=== PATIENT | female | born 1980 | race Caucasian/White ===

== ENCOUNTER 2022-06-17 11:29 | Outpatient (REF) | payer OTHER, SELFPAY ==
[2022-06-17 12:48] LABS: Alanine Aminotransferase 8 U/L (0-31); Albumin Level 4.4 g/dL (3.5-5.0); Alkaline Phosphatase 41 U/L (39-117); Anion Gap 12 (12-20); Aspartate Amino Transferase 10 U/L (5-31); Bilirubin Total 0.7 mg/dL (0.0-1.0); Blood Urea Nitrogen 15 mg/dL (9-16); Calcium 8.6 mg/dL (8.4-10.2); Carbon Dioxide 24 mmol/L (22-29); Chloride 107 mmol/L (96-108); Cholesterol 150 mg/dL; Estimated Glomerular Filt Rate > 60; Glucose Fasting 102 mg/dL (60-99); HDL Cholesterol 78 mg/dL; LDL Cholesterol Calculated 66 mg/dl; Potassium 3.9 mmol/L (3.3-5.1); Sodium 139 mmol/L (135-145); Triglycerides 31 mg/dL
[2022-06-17 12:58] LABS: Vitamin D 25-OH Total 32.3 ng/mL (>30)
== END 2022-06-17 11:30 | disposition home or self-care (01) ==
LOC: HO.LAB 11:29
PROVIDERS: PCP Internal Medicine; Visit Provider Internal Medicine
DX: Z00.00 Encounter for general adult medical examination without abnormal findings (principal); E06.3 Autoimmune thyroiditis; E55.9 Vitamin D deficiency, unspecified
CPT/HCPCS: 36415; 80053; 80061; 82306; 84443

== ENCOUNTER 2022-06-25 09:53 | Outpatient (REF) | payer OTHER, SELFPAY ==
--- NOTE | ~2022-06-25 | MM_ITS ---
EXAMINATION: MM SCREENING DIGITAL BREAST TOMOSYNTHESIS, BILATERAL CLINICAL INFORMATION: Screening. Asymptomatic. No prior breast imaging. Age 41. No known family history breast cancer. The lifetime risk of breast cancer based on the Tyrer-Cuzick Model is 10%. COMPARISON: None (current study represents initial baseline exam). TECHNIQUE: Digital breast tomosynthesis is performed in both the craniocaudal and mediolateral oblique views along with computer-aided detection (CAD). Synthesized 2D images are generated from the tomosynthesis. FINDINGS: There are scattered areas of fibroglandular density (ACR BI-RADS breast composition Category b). There is incidental regional parenchymal asymmetry anterior upper outer left breast and minor asymmetry anterior 6:00 left breast. Neither breast shows mass or architectural abnormality or abnormal calcifications. The bilateral axilla and skin contours are unremarkable. MM/MM tomosynthesis screening BI IMPRESSION: No mammographic evidence of malignancy. ASSESSMENT: BI-RADS 2: Benign RECOMMENDATION: Routine annual mammography screening. This patient's information was entered into a reminder system with a target due date for their next mammogram.
== END 2022-06-25 09:54 | disposition home or self-care (01) ==
LOC: HO.MAMMO 09:53
PROVIDERS: PCP Internal Medicine; Visit Provider Internal Medicine
DX: Z12.31 Encounter for screening mammogram for malignant neoplasm of breast (principal)
CPT/HCPCS: 77063; 77067

== ENCOUNTER 2023-11-02 08:31 | Outpatient (REF) | payer OTHER, SELFPAY ==
--- NOTE | ~2023-11-02 | MM_ITS ---
EXAMINATION: MM SCREENING DIGITAL BREAST TOMOSYNTHESIS, BILATERAL CLINICAL INFORMATION: Screening. Asymptomatic. COMPARISON: Mammography: This study is compared with prior exams dating back to 2021. TECHNIQUE: Digital breast tomosynthesis is performed in both the craniocaudal and mediolateral oblique views along with computer-aided detection (CAD). Synthesized 2D images are generated from the tomosynthesis. FINDINGS: There are scattered areas of fibroglandular density (ACR BI-RADS breast composition Category b). There are no significant masses, abnormal calcifications, or other abnormalities. There is unchanged asymmetric increased parenchymal density of the upper outer quadrant of the left breast. This finding was is present on the 2021 examination and is normal for this patient. MM/MM tomosynthesis screening BI IMPRESSION: No mammographic evidence of malignancy. ASSESSMENT: BI-RADS BI-RADS 1 - Negative RECOMMENDATION: Routine annual mammography screening. 1 year F/U This examination should not preclude the clinical evaluation of a suspicious palpable abnormality. This patient's information was entered into a reminder system with a target due date for their next mammogram.
== END 2023-11-02 08:32 | disposition home or self-care (01) ==
LOC: HO.MAMMO 08:31
PROVIDERS: Visit Provider Internal Medicine
DX: Z12.31 Encounter for screening mammogram for malignant neoplasm of breast (principal)
CPT/HCPCS: 77063; 77067

== ENCOUNTER → 2023-11-02 08:45 | Outpatient (BNV) | payer OTHER, SELFPAY | PROVIDERS: Visit Provider Radiology Diagnostic Radiology | DX: Z12.31 Encounter for screening mammogram for malignant neoplasm of breast (principal) | CPT/HCPCS: 77063; 77067 ==

== ENCOUNTER 2024-11-07 08:36 | Outpatient (REF) | payer OTHER, SELFPAY | END 2024-11-07 08:37 | disposition home or self-care (01) | LOC: HO.MAMMO 08:36 | PROVIDERS: PCP Internal Medicine; Visit Provider Internal Medicine | DX: Z12.31 Encounter for screening mammogram for malignant neoplasm of breast (principal) | CPT/HCPCS: 77063; 77067 ==

== ENCOUNTER → 2024-11-07 08:45 | Outpatient (BNV) | payer OTHER, SELFPAY | PROVIDERS: PCP Internal Medicine; Visit Provider Internal Medicine | DX: Z12.31 Encounter for screening mammogram for malignant neoplasm of breast (principal) | CPT/HCPCS: 77063; 77067 ==

== ENCOUNTER 2025-07-13 11:07 | Outpatient (REF) | payer OTHER, SELFPAY ==
[2025-07-13 12:45] LABS: MANUAL DIFF FLAG NO
[2025-07-13 12:51] LABS: Hematocrit 36.8 % (37.0-47.0); Hemoglobin 12.9 g/dl (12.0-16.0); Imm Gran Abs Auto 0.04 X10*3/uL (0.00-0.03); Imm Gran Pct Auto 0.7 % (0.0-0.4); Lymphocytes Absolute Auto 1.7 X10*3/uL (1.2-4.9); Mean Corpuscular HGB Conc 35.1 g/dl (31.0-35.0); Mean Corpuscular Hemoglobin 30.9 pg (27.0-33.0); Mean Corpuscular Volume 88.2 fL (80.0-98.0); NRBC Abs Auto 0.000 X10*3/uL (0.0-0.012); NRBC Pct Auto 0.0 /100WBC (0.0-0.2); Platelet Count 195 X10*3/uL (160-400); Red Blood Count 4.17 X10*6/uL (4.20-5.50); White Blood Count 5.5 X10*3/uL (4.8-10.8)
[2025-07-13 13:36] LABS: Cholesterol 173 mg/dL (<200); HDL Cholesterol 91 mg/dL (>40); Iron 80 mcg/dL (30-160); Magnesium 2.0 mg/dL (1.6-2.6); Percent Iron Saturation 26 % (15-50); Total Iron Binding Capacity 302 mcg/dL (228-428); Triglycerides 40 mg/dL (<150); Unsaturated Iron Binding 222 ug/dL
[2025-07-13 13:39] LABS: Free T4 (Free Thyroxine) 0.97 ng/dL (0.71-1.85); Thyroid Stimulating Hormone 1.80 uIU/mL (0.32-4.0)
[2025-07-13 13:56] LABS: Folate 8.4 ng/mL (> or = 4.0); Vitamin B12 419 pg/mL (200-900)
[2025-07-14 09:49] LABS: Lyme Abs Screen <0.90 index
[2025-07-14 13:58] LABS: Immunoglobulin A 402 mg/dL (47-310); Transglutaminase Ab IgG <1.0 U/mL
[2025-07-21 16:23] LABS: Testosterone, Free 2.6 pg/mL (0.1-6.4)
[2025-07-23 13:28] LABS: Saliva Cortisol 0.10 mcg/dL
== END 2025-07-13 11:08 | disposition home or self-care (01) ==
LOC: HO.LAB 11:07
PROVIDERS: PCP Internal Medicine; Visit Provider Internal Medicine
DX: Z00.00 Encounter for general adult medical examination without abnormal findings (principal); E66.812 Obesity, class 2; K52.9 Noninfective gastroenteritis and colitis, unspecified; N92.6 Irregular menstruation, unspecified; R76.8 Other specified abnormal immunological findings in serum; I10 Essential (primary) hypertension; E06.3 Autoimmune thyroiditis; D64.9 Anemia, unspecified; M25.50 Pain in unspecified joint; E78.5 Hyperlipidemia, unspecified; E53.8 Deficiency of other specified B group vitamins; E55.9 Vitamin D deficiency, unspecified; F33.2 Major depressive disorder, recurrent severe without psychotic features; F41.1 Generalized anxiety disorder; Z68.37 Body mass index [BMI] 37.0-37.9, adult; Z79.899 Other long term (current) drug therapy
CPT/HCPCS: 36415; 80061; 82088; 82306; 82530; 82607; 82627; 82672; 82746; 82784; 83540; 83735; 84144; 84244; 84402; 84403; 84425; 84439; 84443; 84630; 85025; 85652; 86140; 86160; 86258; 86364; 86617; 86618; 96127; 99212; 99396

== ENCOUNTER 2025-07-13 11:07 | Outpatient (AMB) | payer OTHER, SELFPAY ==
[2025-07-13 11:11] VITALS: BP 142/88; PULSE 80; TEMP 36.2; O2SAT 100; BMI 37.3
--- NOTE | 2025-07-13 11:11 | MHC.PC.OV ---
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 Accompanied by: Self / Same As Patient Allergies No Known Allergies Allergy (Mild, Verified 07/13/25 11:18) NOT APPLICABLE Medication List - Last Reconciled 07/13/25 by Gabriela Delarosa MD alclometasone 0.05% 1 appl topical BID PRN 30 days Tobacco use date assessed: 07/13/25 Dental Screening Dental Screen Date: 07/13/25 Did you have a dental visit in the last 12 months?: Yes Did you have a dental problem in the last 6 months where you did not have access to dental care?: No Was dental information given to patient?: Patient has dentist HPI HPI Comments History of Present Illness Details The patient is a 44-year-old female presenting with a physical examination and management of chronic conditions. She has a history of severe major depressive disorder, with a PHQ-9 score of 20, indicating severe depression. There are no suicidal thoughts reported, and she will be referred to outpatient psychiatric care and counseling. The patient also suffers from generalized anxiety disorder, with a ALEXEY-7 score of 21, indicating severe anxiety. She has been diagnosed with Kylie's thyroiditis, which may contribute to her symptoms of fatigue and weight gain. The patient has impaired glucose tolerance and has experienced rapid weight gain, fatigue, and chronic diarrhea. She has a history of elevated blood pressure and a positive A1c in the past. She reports diffuse joint pain and abnormal menses, which will be further evaluated with hormonal assessments. - Tdap vaccination last administered in 2018 - Mammogram conducted in October, results were normal [facility] Medical History (Updated 07/13/25 @ 11:53 by Gabriela Delarosa MD) Leg edema Surgical History History of elbow surgery History of D&C History of appendectomy Family History Father No problems noted. Mother Crohn's disease involving esophagus Maternal Grandmother Diabetes Hypertension Paternal Grandfather Diabetes Brother Overdose Family/Other FH: mental illness Social History Housing: House Alcohol intake: never Patient Tobacco Use Status: Never used Tobacco e-Cigarette/Vaping Use: Never Used Second Hand Smoke Exposure: No service: No Current occupational status: employed Current occupational exposures/hazards: No Cognitive needs: No Hearing needs: No Vision needs: No Questionnaire PHQ-9 Over the last 2 weeks, how often have you been bothered by any of the following problems? 1. Little interest or pleasure in doing things: nearly every day 2. Feeling down, depressed, or hopeless: not at all 3. Trouble falling or staying asleep, or sleeping too much: nearly every day 4. Feeling tired or having little energy: nearly every day 5. Poor appetite or overeating: nearly every day 6. Feeling bad about yourself - or that you are a failure or have let yourself or your family down: nearly every day 7. Trouble concentrating on things, such as reading the newspaper or watching television: nearly every day 8. Moving or speaking so slowly that other people could have noticed. Or the opposite - being so fidgety or restless that you have been moving around a lot more than usual: nearly every day 9. Thoughts that you would be better off or of hurting yourself in some way: not at all Total score: 21 Depression Screening Interpretation: Positive (no suicidal thoughts) Depression Screening Follow-up: Existing condition and Follow-up Visit Requested Depression Screening Done: Yes 31842 - PHQ-9 Billing: Yes Source: Developed by Drs. Kendrick Galvin, Eden Black, Gucci Bravo and colleagues, with an educational luis e from [employer]. Thrive Questionnaire Date Thrive assessed: 07/13/25 I am a: Patient What is your living situation today?: I have a steady place to live Within the past 12 months, did the food you bought not last and you didn't have the money to get more?: Never true Within the past 12 months, did you worry whether your food would run out before you got money to buy more?: Never true Do you have trouble paying for medicines?: No Do you have trouble getting transportation to medical appointments?: No Do you have trouble paying your heating and electricity bill?: No Do you have trouble taking care of your child, family member or friend?: No Do you have trouble with day-to-day activities such as bathing, preparing meals, shopping, managing finances, etc.?: No Are you currently unemployed and looking for a job?: No Are you interested in more education?: No THRIVE Score: 0 AUDIT C Alcohol Use Questionnaire (AUDIT-C) 1. How often do you have a drink containing alcohol?: Never 3. How often do you have six or more drinks on one occasion?: Never Total Score: 0 Score Reviewed/Action Taken: No ALEXEY-7 AMB Questionnaire ALEXEY-7 Date ALEXEY - 7 assessed: 07/13/25 Feeling nervous, anxious, or on edge: 3 = Nearly every day Not being able to stop or control worryin = Not at all Worrying too much about different things: 0 = Not at all Trouble relaxin = More than half the days Being so restless that it is hard to sit still: 3 = Nearly every day Becoming easily annoyed or irritable: 2 = More than half the days Feeling afraid as if something awful might happen: 0 = Not at all Total ALEXEY-7 score (0-4 normal; 5-9 mild; 10-14 moderate; 15-21 severe): 10 Source: Developed by Drs. Kendrick Galvin, Eden Black, Gucci Bravo and colleagues, with an educational luis e from [employer]. ALEXEY-7 Assessment Billing ALEXEY-7 Assessment Tool: ALEXEY-7 Assessment 01057 Review of Systems Const All systems reviewed & are unremarkable except as noted in HPI and below Card Denies chest pain at rest, Denies chest pain with activity, Denies edema, Denies irregular heart rhythm, Denies claudication, Denies dyspnea, Denies dyspnea on exertion, Denies orthopnea, Denies paroxysmal nocturnal dyspnea and Denies slow heart rate Resp Denies cough, Denies dyspnea and Denies dyspnea on exertion GI Denies abdominal pain, Denies change in bowel habits, Denies excessive flatus, Denies nausea and Denies vomiting Denies urinary incontinence, Denies urinary hesitancy and Denies urinary urgency Musc Denies abnormal gait, Denies atrophy, Denies deformity and Denies limited range of motion Skin/Breast Denies bleeding lesions, Denies changing lesions and Denies rash Neuro Denies abnormal gait and Denies lack of coordination Physical exam (Primary Care) Vital Signs: Last Vital Signs Temp 97.1 F 07/13/25 11:11 Pulse 80 07/13/25 11:11 BP 142/88 H 07/13/25 11:11 Pulse Ox 100 07/13/25 11:11 Oxygen Delivery Method Room Air 07/13/25 11:11 BMI result Body Mass Index 37.3 BMI Assessment/Plan discussion: High BMI High, discussed plan: lifestyle, weight reduction, dietary and physical activity Tobacco/Smoking Status: Tobacco use Status Tobacco use date assessed 07/13/25 07/13/25 11:15 Patient Tobacco Use Status Never used Tobacco 07/13/25 11:15 e-Cigarette/Vaping Use Never Used 07/13/25 11:15 PHQ-9: PHQ-9 Score PHQ-9: Total score 21 07/13/25 11:15 Depression Screening Interpretation: Positive (no suicidal thoughts) Depression Screening Follow-up: Existing condition and Follow-up Visit Requested Thrive Assessment: Date of Thrive Assessment Date Thrive assessed 07/13/25 07/13/25 11:15 HENMT Head: Yes normal to inspection, Yes normocephalic and Yes atraumatic Ears: external ears normal Eyes General: appearance normal, both eyes and all related structures Eyelids: Yes eyelids normal Conjunctivae: conjunctivae normal Neck Neck: Yes normal visual inspection and Yes supple Resp Effort & Inspection: normal respiratory effort Auscultation: clear to auscultation bilaterally Cardio Jugular venous distension: no JVD Rate: regular rate Rhythm: regular rhythm Heart sounds: S1 normal heart sound present and S2 normal heart sound present GI Inspection: Yes normal to inspection Palpation (GI): Soft to palpation and nontender Auscultation: normal bowel sounds Skin General skin exam: no rashes or lesions noted Neuro General: no focal motor deficits Extrem General: Yes full ROM Psych Appearance: grossly normal Coding Level of Care Code Est Pt Level 4 (26910) Est Pt Prev Care 40-64y(72048) Diagnoses Physical exam Z00.00 Polyarthralgia M25.50 Positive GABRIELA (antinuclear antibody) R76.8 Abnormal menses N92.6 Chronic diarrhea K52.9 Class 2 obesity with body mass index (BMI) of 37.0 to 37.9 in adult E66.812; Z68.37 Kylie's disease E06.3 Hypertension I10 Severe recurrent major depression F33.2 ALEXEY (generalized anxiety disorder) F41.1 Additional Codes ALEXEY-7 Assessment Billing - ALEXEY-7 Assessment Tool: ALEXEY-7 Assessment 29083 ([id number]) PHQ-9 - 21787 - PHQ-9 Billing: Yes ([id number]) Time Spent (min) 40 Assessment & Plan Assessment & Plan (1) Physical exam: Code(s): Z00.00 - Encounter for general adult medical examination without abnormal findings Category: Medical (2) Polyarthralgia: Code(s): M25.50 - Pain in unspecified joint Category: Medical (3) Positive GABRIELA (antinuclear antibody): Code(s): R76.8 - Other specified abnormal immunological findings in serum Category: Medical (4) Abnormal menses: Code(s): N92.6 - Irregular menstruation, unspecified Category: Medical (5) Chronic diarrhea: Code(s): K52.9 - Noninfective gastroenteritis and colitis, unspecified Category: Medical (6) Class 2 obesity with body mass index (BMI) of 37.0 to 37.9 in adult: Code(s): E66.812 - Obesity, class 2; Z68.37 - Body mass index [BMI] 37.0-37.9, adult Category: Medical (7) Kylie's disease: Code(s): E06.3 - Autoimmune thyroiditis Category: Medical (8) Hypertension: Code(s): I10 - Essential (primary) hypertension Category: Medical (9) Severe recurrent major depression: Code(s): F33.2 - Major depressive disorder, recurrent severe without psychotic features Category: Medical (10) ALEXEY (generalized anxiety disorder): Code(s): F41.1 - Generalized anxiety disorder Category: Medical Plan The patient will be referred to outpatient psychiatric care and counseling for her severe major depressive disorder and generalized anxiety disorder. An ultrasound of the kidneys will be performed to rule out renal artery stenosis due to her elevated blood pressure. Hormonal assessments will be conducted to evaluate her abnormal menses. Further testing, including aldosterone and renin, will be done to investigate the cause of her blood pressure. Orders: Orders Thyroid Stimulating Hormone Today E06.3 - Autoimmune thyroiditis Free T4 (Free Thyroxine) Today E06.3 - Autoimmune thyroiditis IRON PROFILE Today D64.9 - Anemia, unspecified Saliva Cortisol Today E66.812 - Obesity, class 2, Z68.37 - Body mass index [BMI] 37.0-37.9, adult Complement C3 Today R76.8 - Other specified abnormal immunological findings in serum Complement C4 Today R76.8 - Other specified abnormal immunological findings in serum Magnesium Today E66.812 - Obesity, class 2, Z68.37 - Body mass index [BMI] 37.0-37.9, adult Zinc Today E66.812 - Obesity, class 2, Z68.37 - Body mass index [BMI] 37.0-37.9, adult Celiac Diagnostic Gliadin TTG Today K52.9 - Noninfective gastroenteritis and colitis, unspecified Estrogen Today N92.6 - Irregular menstruation, unspecified DHEA Sulfate Today N92.6 - Irregular menstruation, unspecified Renin Today I10 - Essential (primary) hypertension Lyme IgG/IgM w/reflex to WB Today M25.50 - Pain in unspecified joint Lipid Panel Today E78.5 - Hyperlipidemia, unspecified Vitamin B12 and Folate Today E53.8 - Deficiency of other specified B group vitamins Vitamin D 25-OH Total Today E55.9 - Vitamin D deficiency, unspecified Complete Blood Count Auto Diff Today D64.9 - Anemia, unspecified H pylori Ag Stool Today R19.7 - Diarrhea, unspecified Giardia Ag Stool EIA Today R19.7 - Diarrhea, unspecified C Reactive Protein Today R76.8 - Other specified abnormal immunological findings in serum Erythrocyte Sedimentation Rate Today R76.8 - Other specified abnormal immunological findings in serum Vitamin B1 Today E66.812 - Obesity, class 2, Z68.37 - Body mass index [BMI] 37.0-37.9, adult Progesterone Today N92.6 - Irregular menstruation, unspecified Testosterone, Free/Total Today N92.6 - Irregular menstruation, unspecified Aldosterone Today I10 - Essential (primary) hypertension US renal BI Today I10 - Essential (primary) hypertension Calprotectin, Fecal Today K52.9 - Noninfective gastroenteritis and colitis, unspecified Fecal Fat Qualitative Today K52.9 - Noninfective gastroenteritis and colitis, unspecified 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
--- OUTSIDE RECORDS SUMMARY | 2025-07-13 12:49 | XMS_ITS | Clinical Summary ---
Author Organization [facility] Address [address] [facility] [facility] [address] [place] [id number] Phone Care Team Providers Care Motor Vehicle Technician Name Role Phone Angelica Sauer Primary Care Provider [phone] Allergies No known active allergies Medications clobetasol (TEMOVATE) 0.05 % cream Apply topically 2 (two) times a day. Active clobetasol (CLOBEX) 0.05 % shampoo Apply topically 2 (two) times a day. Active betamethasone, augmented, (DIPROLENE) 0.05 % lotion Apply topically 2 (two) times a day. Active triamcinolone acetonide 0.1 % ointment Apply topically 2 (two) times a day. Active ibuprofen (ADVIL,MOTRIN) 800 MG tablet Take 800 mg by mouth every 6 (six) hours as needed for pain (specific location in comments). Active alclometasone (ACLOVATE) 0.05 % ointment Apply topically 2 (two) times a day. Active fluconazole (DIFLUCAN) 150 MG tabletIndicatio ns:Vaginal yeast infection Take one tablet today and if not better after three days repeat the second dose. 2 tablet 1 Active Active Problems No known active problems Social History Tobacco Use Types Packs/Day Years Used Date Smoking Tobacco: Never Smokeless Tobacco: Never Alcohol Use Standard Drinks/Week Comments Yes 0 (1 standard drink = 0.6 oz pur e alcohol) 2 drinks/week Education Answer Date Recorded Are you interested in more education? Not on lacy e 03/20/2023 Are you concerned about learning? Not on file 03/20/2023 No 03/20/2023 No 03/20/2023 Digital Access Answer Date Recorded No 04/18/2023 No 04/18/2023 No 04/18/2023 Reliable internet access at home? Not on file 04/18/2023 Device with a working camera? Not on file Comments No Sex and Gender Information Value Date Recorded Sex Assigned at Not on file Legal Sex Female 10:21 AM EDT Gender Identity Not on file Sexual Orientation Not on file Last Filed Vital Signs Vital Sign Reading Time Taken Comments Blood Pressure 122/66 09/07/2020 10:59 AM EDT Pulse - - Temperature - - Respiratory Rate - - Oxygen Saturation - - Inhaled Oxygen Concentration - - Weight 92.1 kg (203 lb) 09/07/2020 10:59 AM EDT Height 160 cm (5' 3 ) 09/07/2020 10:59 AM EDT Body Mass Index 35.96 09/07/2020 10:59 AM EDT Plan of Treatment Health Maintenance Due Date Last Done Comments DEPRESSION SCREENING 1992 HEPATITIS C SCREENING 1998 HIV ONE-TIME SCREENING (18-6 5 YEARS) 1998 MAMMOGRAM 2020 PAP SMEAR 09/07/2023 09/07/2020, 09/07/2020 COVID-19 VACCINE (2023-2 5 season) 2024 11/02/2021, 04/12/2021, 03/12/2021 Adult Td,Tdap Booster 07/19/2029 07/19/2019 SMOKING STATUS SCREENING (On ce After 26 Yrs) Completed 09/07/2020 HEPATITIS A VACCINES Aged Out No long er eligible based on patient's age to complete this topic HIB VACCINES Aged Out No longer eligi ble based on patient's age to complete this topic MENINGOCOCCAL VACCINES (ACWY) Aged Out No longer eligible based on patient's age to complete this topic MENINGOCOCCAL VACCINES (B) Aged Out N o longer eligible based on patient's age to complete this topic PNEUMOCOCCAL VACCINES (0-49 years) Aged Out No longer eligible b ased on patient's age to complete this topic Medical Devices Not on file Procedures Procedure Name Priority Date/Time Associated Diagnosis Comments PAP TEST Routine 09/07/2020 12:00 AM EDT from Last 3 Months or Most Recently Relevant to Health Maintenance Results * Pap Smear (09/07/2020 12:00 AM EDT) 09/07/2020 09/10/2020 9:1 5 AM EDT Narrative SEE NARRATIVE - 09/12/2020 3:01 PM EDT [address] [address] Fast Food Sales Assistant: Melissa France MD DIRECTOR TRIAL Cytology Report FINAL DIAGNOSIS A. PAP SMEAR (SUREPATH) CE: SPECIMEN ADEQUACY: Satisfactory for evaluation; transformation zone present. INTERPRETATION: NEGATIVE FOR INTRAEPITHELIAL LESION OR MALIGNANCY. Electronically Signed Out By: WILLIAMS Zamorano(ASCP) The Pap test is a screening test primarily for squamous cancers and precursors and has associated false-negative and false-positive results. New technologies such as liquid-based preparations may decrease but will not eliminate all false-negative results. Regular sampling and follow-up of unexplained clinical signs and symptoms are recommended to minimize false negative results. PROCEDURES/ADDENDA HPV Testing (Requested) Ordered Date: 09/10/2020 A. PAP SMEAR (SUREPATH) CE: Human Papilloma Virus Test Negative for high-risk human papillomavirus types 16, 18, 45 and the Other high risk probe set (Includes 31, 33, 35, 39, 51, 52, 56, 58, 59, 66, 68) by [employer] Onclarity HR-HPV analysis. Clinical correlation is advised. This HPV test was performed at [facility], [address] [place] [address]. This test has been FDA approved for SurePath cervical cytology specimens. The accuracy and precision of this test for all other specimen sources has been verified in the Cytopathology Laboratory of the [facility] and has not been cleared or approved by the U.S. Food and Drug Administration. Clinical correlation is advised. CLINICAL HISTORY Date of Last Menstrual Period: 08-17-2020 Other Clinical Conditions: Screening Pap SPECIMEN SOURCE A: PAP SMEAR (SUREPATH) CE Patient Name: TYRA CALLAHAN : 1980 (Age: 39) Sex: F Institution: [facility] Location: [facility] Date of Collection: 09/07/2020 Date of Reported: 09/12/2020 15:01 Results to: Kimberli Chan MD us Kimberli Chan MD CYTOLOGY ORDERABLES Final Res ult SEE NARRATIVE from Last 3 Months or Most Recently Relevant to Health Maintenance Insurance ACO ACO ACO A[employer] [place] [address] [place] [address] ACO Member Subscriber Plan / Payer (Ef fective 2020-Present) Name:Tyra Callahan Relation to Subscriber:Self Name:Tyra Callahan Payer ID:[id number] Group ID:[id number] Type:Medicaid Address: [place] [id number] Care Teams Motor Vehicle Technician Relationship Specialty Start Date End Date Angelica Sauer PA [address] [place] [id number] PCP - General Unknown Provider Specialty 07/16/20 Additional Source Comments The information contained in this document represents components of the legal health record. It is not the complete legal health record.[facility]
== END 2025-07-13 11:44 | disposition home or self-care (01) ==
LOC: HO.HMCH 11:08
PROVIDERS: PCP Internal Medicine; Visit Provider Internal Medicine
DX: Z00.00 Encounter for general adult medical examination without abnormal findings (principal); F33.2 Major depressive disorder, recurrent severe without psychotic features; F41.1 Generalized anxiety disorder; E66.812 Obesity, class 2; Z68.37 Body mass index [BMI] 37.0-37.9, adult; M25.50 Pain in unspecified joint; R76.8 Other specified abnormal immunological findings in serum; N92.6 Irregular menstruation, unspecified; K52.9 Noninfective gastroenteritis and colitis, unspecified; E06.3 Autoimmune thyroiditis; I10 Essential (primary) hypertension

== ENCOUNTER 2025-07-13 18:00 | Outpatient (REF) | payer OTHER, SELFPAY ==
[2025-07-20 20:38] LABS: Calprotectin, Fecal 63 mcg/g
== END 2025-07-13 18:01 | disposition home or self-care (01) ==
LOC: HO.HMGCLNP 18:00
PROVIDERS: PCP Internal Medicine; Visit Provider Internal Medicine
DX: K52.9 Noninfective gastroenteritis and colitis, unspecified (principal)
CPT/HCPCS: 83993

== ENCOUNTER → 2025-08-17 15:22 | Outpatient (BNVA) | payer OTHER, SELFPAY | PROVIDERS: PCP Internal Medicine | DX: I10 Essential (primary) hypertension (principal) | CPT/HCPCS: 99211 ==

== ENCOUNTER 2025-08-25 14:52 | Outpatient (REF) | payer OTHER, SELFPAY ==
--- NOTE | ~2025-08-25 | US_ITS ---
EXAMINATION: US RETROPERITONEAL LIMITED (RENAL ONLY) ULTRASOUND RENAL DOPPLER CLINICAL INFORMATION: Essential (primary) hypertension.. COMPARISON: None available. TECHNIQUE: Real-time ultrasound kidneys using grayscale and color technique. Spectral color Doppler analysis of the main renal arteries and abdominal aorta at the origin of the main renal arteries with segmental and interlobular resistive indicis at the upper mid and lower pole of the kidneys. FINDINGS: RIGHT KIDNEY: 11 x 4 x 6 cm (SAG x AP x TRV). Normal echotexture. Renal cortical thickness is normal. No hydronephrosis. No solid or cystic lesion. LEFT KIDNEY: 10 x 6 x 6 cm (SAG x AP x TRV). Normal echotexture. Renal cortical thickness is normal. No hydronephrosis. No solid or cystic lesion. SPECTRAL DOPPLER ANALYSIS: Right Kidney: -Peak systolic velocity in the proximal right renal artery = 80 cm/s. Normal waveforms. -Peak systolic velocity in the mid right renal artery = 259 cm/s. Normal waveforms. -Peak systolic velocity in the distal right renal artery = 165 cm/s. Normal waveforms. -Patent right renal vein. -Upper pole interlobar artery resistive index of 0.72. -Midpole interlobar artery resistive index of 0.63. -Lower pole interlobar artery resistive index of 0.71. RAR right = 5.3 Left Kidney: -Peak systolic velocity in the proximal left renal artery = 72 cm/s. Normal waveforms. -Peak systolic velocity in the mid left renal artery = 146 cm/s. Normal waveforms. -Peak systolic velocity in the distal left renal artery = 195 cm/s. Normal waveforms. -Patent left renal vein. -Upper pole interlobar artery resistive index of 0.72. -Mid pole interlobar artery resistive index of 0.65. -lower pole interlobar artery resistive index of 0.65. RAR left = 3.9 Aorta: -Peak systolic velocity = 50 cm/s. US/US renal BI IMPRESSION: Hemodynamically significant stenosis by ultrasound criteria in both main renal arteries. Normal resistive indicis. No hydronephrosis. No gross nephrolithiasis.. Electronically signed by: Cristo Viveros MD 08/25/2025 03:45 PM EDT
--- NOTE | ~2025-08-25 | US_ITS ---
EXAMINATION: US RETROPERITONEAL LIMITED (RENAL ONLY) ULTRASOUND RENAL DOPPLER CLINICAL INFORMATION: Essential (primary) hypertension.. COMPARISON: None available. TECHNIQUE: Real-time ultrasound kidneys using grayscale and color technique. Spectral color Doppler analysis of the main renal arteries and abdominal aorta at the origin of the main renal arteries with segmental and interlobular resistive indicis at the upper mid and lower pole of the kidneys. FINDINGS: RIGHT KIDNEY: 11 x 4 x 6 cm (SAG x AP x TRV). Normal echotexture. Renal cortical thickness is normal. No hydronephrosis. No solid or cystic lesion. LEFT KIDNEY: 10 x 6 x 6 cm (SAG x AP x TRV). Normal echotexture. Renal cortical thickness is normal. No hydronephrosis. No solid or cystic lesion. SPECTRAL DOPPLER ANALYSIS: Right Kidney: -Peak systolic velocity in the proximal right renal artery = 80 cm/s. Normal waveforms. -Peak systolic velocity in the mid right renal artery = 259 cm/s. Normal waveforms. -Peak systolic velocity in the distal right renal artery = 165 cm/s. Normal waveforms. -Patent right renal vein. -Upper pole interlobar artery resistive index of 0.72. -Midpole interlobar artery resistive index of 0.63. -Lower pole interlobar artery resistive index of 0.71. RAR right = 5.3 Left Kidney: -Peak systolic velocity in the proximal left renal artery = 72 cm/s. Normal waveforms. -Peak systolic velocity in the mid left renal artery = 146 cm/s. Normal waveforms. -Peak systolic velocity in the distal left renal artery = 195 cm/s. Normal waveforms. -Patent left renal vein. -Upper pole interlobar artery resistive index of 0.72. -Mid pole interlobar artery resistive index of 0.65. -lower pole interlobar artery resistive index of 0.65. RAR left = 3.9 Aorta: -Peak systolic velocity = 50 cm/s. US/US renal doppler IMPRESSION: Hemodynamically significant stenosis by ultrasound criteria in both main renal arteries. Normal resistive indicis. No hydronephrosis. No gross nephrolithiasis.. Electronically signed by: Cristo Viveros MD 08/25/2025 03:45 PM EDT
--- OUTSIDE RECORDS SUMMARY | 2025-08-25 14:56 | XMS_ITS | Clinical Summary ---
Author Organization [facility] Address [address] [facility] [address] [place] [id number] Phone Care Team Providers Care [employer] Marker Name Role Phone Angelica Sauer Primary Care Provider [phone] Allergies No known active allergies Medications clobetasol [...] MAMMOGRAM 2020 PAP SMEAR 09/07/2023 09/07/2020, 09/07/2020 INFLUENZA VACCINE (#1) 2025 COVID-19 VACCINE ( - 2024-2 6 season) 2025 11/02/2021, 04/12/2021, 03/12/2021 Adult Td,Tdap Booster 07/19/2029 [...] SEE NARRATIVE - 09/12/2020 3:01 PM EDT [address] [address] Teen Counselor: Melissa France MD CRA OFFICER Cytology Report FINAL DIAGNOSIS A. PAP SMEAR (SUREPATH) CE: SPECIMEN ADEQUACY: Satisfactory for evaluation; transformation zone present. INTERPRETATION: NEGATIVE FOR INTRAEPITHELIAL LESION OR MALIGNANCY. Electronically Signed Out By: WILLIAMS Zamorano(ASC) The Pap test is a screening test [...] 52, 56, 58, 59, 66, 68) by [employer] Onclarity HR-HPV analysis. Clinical correlation is advised. This HPV test was performed at [facility], [address] [place] [address]. This test has been FDA approved for [facility] cervical cytology specimens. The accuracy and precision of this test for all other specimen sources has been verified in the Cytopathology Laboratory of the [facility] and has not been cleared or approved by the U.S. Food and Drug Administration. Clinical correlation is advised. CLINICAL HISTORY Date of Last Menstrual Period: 08-17-2020 Other Clinical Conditions: Screening Pap SPECIMEN SOURCE A: PAP SMEAR (SUREPATH) CE Patient Name: TYRA CALLAHAN : 1980 (Age: 39) Sex: F Institution: [facility] Location: [facility] Date of Collection: 09/07/2020 Date of Reported: 09/12/2020 15:01 Results to: Kimberli Chan MD us Kimberli Chan MD CYTOLOGY ORDERABLES Final Res ult SEE NARRATIVE from Last 3 Months or Most Recently Relevant to Health Maintenance Insurance ACO ACO ACO ACO ACO ACO ACO Care Teams [employer] Relationship Specialty Start Date End Date Angelica Sauer PA [address] [place] [id number] PCP - General Unknown Provider Specialty 07/16/20 Additional Source Comments The information contained in this document represents components of the legal health record. It is not the complete legal health record.[facility]
== END 2025-08-25 14:53 | disposition home or self-care (01) ==
LOC: HO.HMGCX 14:52
PROVIDERS: PCP Internal Medicine; Visit Provider Internal Medicine
DX: I10 Essential (primary) hypertension (principal)
CPT/HCPCS: 76775; 93975

== ENCOUNTER → 2025-08-25 14:55 | Outpatient (BNV) | payer OTHER, SELFPAY | PROVIDERS: PCP Internal Medicine; Visit Provider Radiology Diagnostic Radiology | DX: I70.1 Atherosclerosis of renal artery (principal) | CPT/HCPCS: 76775; 93975 ==